=== PATIENT | female | born 1965 | race Caucasian/White ===

== ENCOUNTER → 2016-11-11 | Outpatient (CLI) | payer OTHER ==
[2016-08-27 20:26] VITALS: BP 100/65
[~2016-11-11] MED LIST: CYCL10TA2 PO; TRAM-29 PO
[2016-11-11 11:02] LABS: CALCIUM 9.1 mg/dL (8.5-10.1); CREATININE 0.5 mg/dL (0.6-1.0); GFR 131.1; POTASSIUM 4.1 mmol/L (3.5-5.1)
[2016-11-11 11:03] LABS: CHOLESTEROL/HDL RATIO 1.5
== END | disposition home or self-care (01) ==
LOC: LAB 10:08
PROVIDERS: ATTEND Psychiatry & Neurology Psychiatry
DX: F31.4 Bipolar disorder, current episode depressed, severe, without psychotic features (principal)
CPT/HCPCS: 36415; 80048; 80061; 83036

== ENCOUNTER 2018-02-13 12:28 | Emergency (ER) | payer OTHER ==
[2018-02-13] MEDS: LIDOCAINE WITH 8.4% SOD BICARB 3 ML DISP.SYRIN. INJ (13:04)
[2018-02-13] MEDS: DIPHTH,PERTUSS(ACELL),TET TOX 0.5 ML DISP.SYRIN. VAX IM (13:18)
== END 2018-02-13 13:37 | disposition home or self-care (01) ==
LOC: ER 12:28
DX: S61.411A Laceration without foreign body of right hand, initial encounter (principal); F12.10 Cannabis abuse, uncomplicated; F10.10 Alcohol abuse, uncomplicated; Z91.018 Allergy to other foods; X99.0XXA Assault by sharp glass, initial encounter; Y93.89 Activity, other specified; Y99.8 Other external cause status; Y92.89 Other specified places as the place of occurrence of the external cause
CPT/HCPCS: 12002; 73130; 90471; 90715; 99284-25